=== PATIENT | female | born 1950 | race Asian ===

== ENCOUNTER 2018-03-02 17:24 | Emergency (ER) | payer SELFPAY ==
[~2018-03-02] VITALS: Ht 162.6 cm; Wt 54.4 kg
[2018-03-02 17:46] VITALS: BP 122/76
--- NOTE | 2018-03-02 17:55 | Emergency Room Report ---
History of Present Illness General Chief Complaint: Syncope Source: Patient Present Illness HPI 67-year-old female brought in by EMS for near syncope She states she was driving fast to pickup kids from school She was having abdominal pain and had to have a bowel movement, try to use bathroom at a drive-through restaurant but was unable to do so Patient allegedly syncopized, which she states she remembers the whole incident She states she denies hitting head or any other injury She denies any medical history, medications States she exercises regularly She had what sounds like a checkup by primary doctor who 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 Per EMS she had pressure rechecked when standing with orthostatic hypotension and was pale In the ER she had a massive bowel movement and felt better after that Currently asymptomatic Allergies: Coded Allergies: No Known Allergies (Unverified , 03/02/18) Patient History Past Medical History: none Past Surgical History: none Pertinent Family History: none Social History: Denies: smoking, alcohol use, drug use Now: No Immunizations: UTD Reviewed Nursing Documentation: PMH: Agreed; PSxH: Agreed Nursing Documentation-PMH Past Medical History: No Stated History Review of Systems All Other Systems: negative except mentioned in HPI Physical Exam Vital Signs Date Time Temp Pulse Resp B/P (MAP) Pulse Ox O2 Delivery O2 Flow Rate FiO2 03/02/18 17:24 98.2 56 16 122/76 99 Room Air 98.2 Sp02 EP Interpretation: reviewed, normal General Appearance: normal inspection, well appearing, no apparent distress, alert, GCS 15, non-toxic, other - smiling, interactive, laughing, talking on phone with friend/family Head: normocephalic, atraumatic Eyes: bilateral eye PERRL, bilateral eye EOMI ENT: normal ENT inspection, hearing grossly normal, normal pharynx, no angioedema, normal voice, TMs + canals normal, uvula midline, moist mucus membranes Neck: normal inspection, full range of motion, supple, thyroid normal, no meningismus, no bony tend Respiratory: normal inspection, lungs clear, normal breath sounds, no rhonchi, no respiratory distress, no retraction, no accessory muscle use, no wheezing, speaking full sentences Cardiovascular #1: regular rate, rhythm, no edema, no JVD, normal capillary refill Gastrointestinal: normal inspection, normal bowel sounds, non tender, soft, no mass, no peritonitis, non-distended, no guarding, no hernia, no pulsatile mass Genitourinary: no CVA tenderness Musculoskeletal: normal inspection, back normal, normal range of motion, no calf tenderness, pelvis stable, Dang's Sign negative Neurologic: normal inspection, alert, oriented x3, responsive, pulmonologist III-XII nml as tested, motor strength/tone normal, cerebellar normal, normal gait, speech normal Psychiatric: normal inspection, judgement/insight normal, mood/affect normal, no suicidal/homicidal ideation, no delusions Skin: normal inspection, normal color, no rash Lymphatic: normal inspection, no adenopathy Medical Decision Making Diagnostic Impression: Primary Impression: Vasovagal near syncope ER Course 67-year-old female with near syncope Likely vasovagal reaction due to having to go to the bathroom Likely vasovagal given precipitating abdominal pain, paleness, and associated orthostatic hypotension ECG here shows normal sinus rhythm with PVCs Patient has PVC on monitor But no electrolyte abnormalities Troponin within normal limits I recommended serial troponin check, however patient and the family/mother with whom patient is a , did not want to stay in the ER, did not want to be admitted, did not want any additional test I gave copy of labs and ECG Strongly recommended to both of them that she have follow-up with PMD and coronary care unit nurse for stress test she understands to return to ER for any recurrence of symptoms ER course: Patient has remained stable during ED stay. Disposition: Patient is to be discharged to home. Patient is instructed to follow up with their primary care doctor within 5 days. Strict return precautions discussed with patient such as fever, chills, worsening/severe pain, nausea, vomiting, which may indicate severe illness. Patient verbalizes understanding and agrees with plan. Please note that this Emergency Department Report was dictated using [employer] and occupational health manager technology software, occasionally this can lead to erroneous entry secondary to interpretation by the dictation equipment EKG Diagnostic Results Rate: normal Rhythm: NSR ST Segments: no acute changes ASA given to the pt in ED: No Rhythm Strip Diag. Results EP Interpretation: yes Rate: 73 Rhythm: NSR, other - Multiple PVCs Last Vital Signs Date Time Temp Pulse Resp B/P (MAP) Pulse Ox O2 Delivery O2 Flow Rate FiO2 03/02/18 17:46 98.2 80 16 122/76 99 Room Air 98.2 Status: improved Disposition: HOME, SELF-CARE CARLTON ARANA M.D. Mar 02, 2018 17:55
[2018-03-02] MEDS ORDERED: LR 1000ml 1,000 ML IV STA (17:56)
[2018-03-02 18:21] LABS: BASOPHILS % (AUTO) 1.6 % (0.0-2.0); EOSINOPHILS % (AUTO) 1.7 % (0.0-3.0); HEMATOCRIT 41.9 % (37.0-47.0); HEMOGLOBIN 14.3 G/DL (12.0-16.0); MEAN CORPUSCULAR VOLUME 95 FL (80-99); MONOCYTES % (AUTO) 5.5 % (1.0-10.0); NEUTROPHILS % (AUTO) 50.2 % (45.0-75.0); PLATELET COUNT 216 K/UL (150-450); RED BLOOD COUNT 4.41 M/UL (4.20-5.40); RED CELL DISTRIBUTION WIDTH 11.8 % (11.6-14.8); WHITE BLOOD COUNT 6.1 K/UL (4.8-10.8)
[2018-03-02 18:28] LABS: ANION GAP 8 mmol/L (5-15); BLOOD UREA NITROGEN 17 mg/dL (7-18); CALCIUM 9.3 MG/DL (8.5-10.1); CARBON DIOXIDE 31 MMOL/L (21-32); CHLORIDE 104 MMOL/L (98-107); CREATININE 0.6 MG/DL (0.55-1.30); POTASSIUM 3.6 MMOL/L (3.5-5.1); SODIUM 142 MMOL/L (136-145)
[2018-03-02 18:44] LABS: ALANINE AMINOTRANSFERASE 44 U/L (12-78); ALBUMIN 3.7 G/DL (3.4-5.0); ALBUMIN/GLOBULIN RATIO 1.1 (1.0-2.7); ALKALINE PHOSPHATASE 128 U/L (46-116); ASPARTATE AMINO TRANSFERASE 38 U/L (15-37); BILIRUBIN,TOTAL 0.8 MG/DL (0.2-1.0); CKMB 1.7 NG/ML (0.0-3.6); CREATINE KINASE 166 U/L (26-308)
[2018-03-02 18:54] VITALS: BP 137/84
--- NOTE | 2018-03-03 16:47 | Cardiology Report ---
APPROVED REPORT EKG Measurement Heart [id number] Sinus rhythm with frequent premature ventricular complexes in a pattern of bigeminy Possible Left atrial enlargement Borderline ECG
== END 2018-03-02 18:55 | disposition home or self-care (01) ==
LOC: EDBD 17:24 → EMR 18:05
DX: R55 Syncope and collapse (principal)
CPT/HCPCS: 36415; 80053; 82550; 82553; 82962; 84484; 85025; 93005; 96374; 99284